=== PATIENT | female | born 2000 | race Caucasian/White ===

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

== ENCOUNTER 2020-05-30 20:05 | Emergency (ER) | payer BC ==
--- OUTSIDE RECORDS SUMMARY | 2020-05-30 20:07 | XMS REPORT | Continuity of Care Document ---
:2000 Author Organization [facility] t Address [address] [place] [address] Care Team Providers Name Role Phone Mariana BURGOS, Vimal Attending Clinician Doctor Unassigned, Name Attending Clinician Unavailable Problems This patient has no known problems. Allergies, Adverse Reactions, Alerts This patient has no known allergies or adverse reactions. Medications This patient has no known medications. Procedures This patient has no known procedures. Encounters Start End Encounter Admission Attending Care Care Encounter Source Date/Time Date/Time Type Type Clinicians Facility Department ID 2019-03-31 2019-03-[address] [facility] [id number] 00:00:00 00:00:00 [facility] [id number] [facility] [id number] [place] [id number] [place] [id number] [address] 2019-03-29 2019-03-[address] [facility] [id number] 10:55:16 11:10:16 Visit [facility] [id number] [facility] [id number] [place] [phone] [place] [facility] Office [address] 2019-03-29 2019-03-29 Orders Doctor GLORIA [id number] 00:00:00 00:00:00 Only UnassignedLISA [id number] [place] [facility] [id number] Results This patient has no known results.
[2020-05-30] MEDS ORDERED: ONDANSETRON 4 MG/2 ML VIAL ONE (20:56)
[2020-05-30] MEDS ORDERED: MECLIZINE HCL 12.5 MG TAB ONE (20:57)
[2020-05-30 21:04] LABS: Absolute Lymphocytes (CBC) 1.8 K/uL (0.7-4.9); Basophils % 0.7 % (0-1.3); Hematocrit 40.9 % (36.0-45.0); Lymphocytes % 30.9 % (15.3-44.8); MPV 8.4 fL (7.6-11.3); RBC Red Blood Cell Count 4.74 M/uL (3.86-4.86)
[2020-05-30 21:33] LABS: ALT/SGPT 17 U/L (12-78); AST/SGOT 7 U/L (15-37); Albumin 3.9 g/dL (3.4-5.0); Alkaline Phosphatase 94 U/L (45-117); BUN Blood Urea Nitrogen 5 mg/dL (7-18); Bicarbonate 28 mmol/L (21-32); Bilirubin Direct 0.1 mg/dL (0-0.2); Bilirubin Total 0.4 mg/dL (0.2-1.0); Glucose Level 86 mg/dL (74-106); Lipase 76 U/L (73-393); Potassium 3.7 mmol/L (3.5-5.1); Protein, Total 7.7 g/dL (6.4-8.2); Sodium Level 142 mmol/L (136-145); Troponin (Emerg Dept Use Only) < 0.02 ng/mL (0.0-0.045)
[2020-05-30 22:19] LABS: Urine Blood NEGATIVE (NEG); Urine Glucose NEGATIVE (NEG); Urine Protein NEGATIVE (NEG); Urine Specific Gravity 1.015 (1.005-1.030); Urine pH 6.5 (5.0-7.0)
[2020-05-30 22:42] LABS: Barbiturates NEGATIVE (NEGATIVE); Benzodiazepines POSITIVE (NEGATIVE); Cocaine NEGATIVE (NEGATIVE); METHAMPHETAM NEGATIVE (NEGATIVE); Methadone NEGATIVE (NEGATIVE); Opiates NEGATIVE (NEGATIVE); Phencyclidine NEGATIVE (NEGATIVE); THC Cannibis POSITIVE (NEGATIVE)
--- NOTE | 2020-05-30 23:00 | ER ---
Nurse's Notes [facility] Name: Hawa Montes [place] Age: 19 yrs Sex: Female : 2000 Arrival Date: 05/30/2020 Time: 20:10 Bed 18 Private MD: Diagnosis: Other peripheral vertigo, unspecified ear Presentation: 05/30 20:12 Chief complaint: EMS states: called for seizures, headache and tunnel vision x 2 days. ca1 No history of seizures. Reports self-medicating with Xanax. Coronavirus screen: Client denies travel out of the [place] in the last 14 days. headache, nausea, Client presents with at least one sign or symptom that may indicate coronavirus-19. Standard/surgical mask placed on the client. Provider contacted for isolation considerations. Ebola Screen: Patient negative for fever greater than or equal to 101.5 degrees Fahrenheit, and additional compatible Ebola Virus Disease symptoms Patient denies exposure to infectious person. Patient denies travel to an Ebola-affected area in the 21 days before illness onset. No symptoms or risks identified at this time. Initial Sepsis Screen: Does the patient meet any 2 criteria? No. Patient's initial sepsis screen is negative. Does the patient have a suspected source of infection? No. Patient's initial sepsis screen is negative. Risk Assessment: Do you want to hurt yourself or someone else? Patient reports no desire to harm self or others. Onset of symptoms was May 30, 2020. 20:12 Method Of Arrival: EMS: [facility] ca1 20:12 Acuity: LEAH 3 ca1 Triage Assessment: 20:20 General: Appears in no apparent distress. comfortable, Behavior is calm, cooperative, ca1 appropriate for age, drowsy. Pain: Complains of pain in left parietal area, right parietal area and occipital area Pain currently is 5 out of 10 on a pain scale. Pain began 2-3 days ago. Also complains of nausea. Neuro: Level of Consciousness is awake, alert, obeys commands, Oriented to person, place, time, situation. Cardiovascular: Capillary refill < 3 seconds Patient's skin is warm and dry. Respiratory: Airway is patent Respiratory effort is even, unlabored, Respiratory pattern is regular, symmetrical. GI: Abdomen is flat, non-distended, Bowel sounds present X 4 quads. Abd is soft and non tender X 4 quads. : No signs and/or symptoms were reported regarding the genitourinary system. Derm: Skin is intact, is healthy with good turgor, Skin is pink, warm \T\ dry. Musculoskeletal: Circulation, motion, and sensation intact. Capillary refill < 3 seconds. 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 - Social history:: Smoking status: Reported history of juuling and/or vaping. Patient uses street drugs, marijuana, Xanax. Screenin:22 Abuse screen: Denies threats or abuse. Denies injuries from another. Nutritional ca1 screening: No deficits noted. Tuberculosis screening: No symptoms or risk factors identified. Fall Risk None identified. Assessment: 20:22 Reassessment: see triage notes. ca1 21:00 Reassessment: Patient appears in no apparent distress at this time. Patient and/or ca1 family updated on plan of care and expected duration. Pain level reassessed. Patient is alert, oriented x 3, equal unlabored respirations, skin warm/dry/pink. 23:03 Reassessment: Patient appears in no apparent distress at this time. Patient and/or ca1 family updated on plan of care and expected duration. Pain level reassessed. Patient is alert, oriented x 3, equal unlabored respirations, skin warm/dry/pink. 23:03 Pain: Denies pain. ca1 Vital Signs: 20:12 BP 113 / 89; Pulse 78; Resp 16 S; Temp 98.1(O); Pulse Ox 100% on R/A; Weight 104.33 kg ca1 (R); Height 5 ft. 11 in. (180.34 cm) (R); Pain 1/; 21:00 BP 105 / 66; Pulse 64; Resp 16 S; Pulse Ox 100% on R/A; ca1 22:00 BP 103 / 58; Pulse 65; Resp 17 S; Pulse Ox 99% on R/A; ca1 23:00 BP 94 / 59; Pulse 63; Resp 15 S; Pulse Ox 99% on R/A; ca1 20:12 Body Mass Index 32.08 (104.33 kg, 180.34 cm) ca1 ED Course: 20:00 Patient has correct armband on for positive identification. Bed in low position. Call jp3 light in reach. Side rails up X 1. Side rails up X2. Warm blanket given. Verbal reassurance given. Pulse ox on. NIBP on. 20:10 Patient arrived in ED. cf2 20:16 Rob Manuel PA is PHCP. [facility] 20:16 Severiano Motta MD is Attending Physician. [facility] 20:17 Hafsa Little, PRADEEP is Primary Nurse. ca1 20:18 Patient maintains SpO2 saturation greater than 95% on room air. jp3 20:19 Triage completed. ca1 20:20 Arm band placed on right wrist. ca1 20:50 Initial lab(s) drawn, by me, sent to lab. Inserted saline lock: 20 gauge in left 3 antecubital area, using aseptic technique. Blood collected. 21:42 CT Head Brain wo Cont In Process Unspecified. EDMS 22:59 Marion Menjivar MD is Referral Physician. [facility] 23:09 No provider procedures requiring assistance completed. IV discontinued, intact, ca1 bleeding controlled, No redness/swelling at site. Pressure dressing applied. Administered Medications: 20:55 Drug: Zofran (Ondansetron) 4 mg Route: IVP; Site: left antecubital; ca1 21:30 Follow up: Response: No adverse reaction; Nausea is decreased ca1 20:57 Drug: Meclizine 50 mg Route: PO; ca1 21:30 Follow up: Response: No adverse reaction; Marked relief of symptoms ca1 Outcome: 23:00 Discharge ordered by . [facility] 23:09 Discharged to home ambulatory, with significant other. ca1 23:09 Condition: stable 23:09 Discharge instructions given to patient, significant other, Instructed on discharge instructions, follow up and referral plans. medication usage, Demonstrated understanding of instructions, follow-up care, medications, Prescriptions given X 1. 23:10 Patient left the ED. ca1 Signatures: Dispatcher [employer] EDMS Rob Manuel PA PA jmm Pisarski, Jacob jp3 Hafsa Little RN RN ca1 Дмитрий Carver cf2 Corrections: (The following items were deleted from the chart) 20:22 20:12 Coronavirus screen: Client denies travel out of the [place] in the last 14 days. At ca1 this time, the client does not indicate any symptoms associated with coronavirus-19. ca1
--- NOTE | 2020-05-30 23:01 | EDPHYS ---
Physician Documentation [facility] Name: Hawa Montes May Age: 19 yrs Sex: Female : 2000 Arrival Date: 05/30/2020 Time: 20:10 Bed 18 Private MD: ED Physician Severiano Motta HPI: 05/30 20:37 This 19 yrs old Female presents to ER via EMS with complaints of Headache, jmm dizziness. 20:37 The patient presents with dizziness. Onset: The symptoms/episode began/occurred jmm acutely, 2 day(s) ago. Modifying factors: the symptoms are aggravated by standing up, changing position. Associated signs and symptoms: Pertinent negatives: blurred vision, vomiting. This is a 19 year old female with no chronic medical conditions that presents to the ED with complaints of headache, dizziness beginning 2 days ago. Denies vomiting, denies fever. Patient also complains of blurred vision. No previous history of vertigo. . ZOO VETERINARIAN: 20:20 LMP 05/22/2020 ca1 Historical: - Allergies: 20:20 Amoxicillin; ca1 - Home Meds: 20:20 None [Active]; ca1 - PMHx: 20:20 None; ca1 - PSHx: 20:20 None; ca1 - Immunization history:: Adult Immunizations up to date. - Social history:: Smoking status: Reported history of juuling and/or vaping. Patient uses street drugs, marijuana, Xanax. ROS: 20:37 Constitutional: Negative for fever, chills, and weight loss, Cardiovascular: Negative jmm for chest pain, palpitations, and edema, Respiratory: Negative for shortness of breath, cough, wheezing, and pleuritic chest pain. 20:37 Abdomen/GI: 20:37 Neuro: Positive for dizziness, headache. 20:37 All other systems are negative. Exam: 20:37 Constitutional: This is a well developed, well nourished patient who is awake, alert, jmm and in no acute distress. Head/Face: atraumatic. ENT: Moist Mucus Membranes Neck: Trachea midline, Supple Chest/axilla: Normal chest wall appearance and motion. Cardiovascular: Regular rate and rhythm. No edema appreciated Respiratory: Normal respirations, no respiratory distress appreciated Abdomen/GI: Non distended, soft Back: Normal ROM Skin: General appearance color normal 20:37 Psych: Behavior is normal, Mood is normal, Patient is cooperative and pleasant 20:37 Eyes: Extraocular movements: intact throughout, Nystagmus: nystagmus with fast component noted. 22:57 ECG was reviewed by the Attending Physician. [facility] Vital Signs: 20:12 BP 113 / 89; Pulse 78; Resp 16 S; Temp 98.1(O); Pulse Ox 100% on R/A; Weight 104.33 kg ca1 (R); Height 5 ft. 11 in. (180.34 cm) (R); Pain 1/10; 21:00 BP 105 / 66; Pulse 64; Resp 16 S; Pulse Ox 100% on R/A; ca1 22:00 BP 103 / 58; Pulse 65; Resp 17 S; Pulse Ox 99% on R/A; ca1 23:00 BP 94 / 59; Pulse 63; Resp 15 S; Pulse Ox 99% on R/A; ca1 20:12 Body Mass Index 32.08 (104.33 kg, 180.34 cm) ca1 MDM: 20:31 Patient medically screened. [facility] 21:34 Data reviewed: vital signs, nurses notes. [facility] 22:57 Data reviewed: lab test result(s), EKG, radiologic studies, CT scan. [facility] 22:58 Counseling: I had a detailed discussion with the patient and/or guardian regarding: the [facility] historical points, exam findings, and any diagnostic results supporting the discharge/admit diagnosis, lab results, radiology results, the need for outpatient follow up, to return to the emergency department if symptoms worsen or persist or if there are any questions or concerns that arise at home. ED course: CT negative. Dizziness resolved. Most likely peripheral vertigo. Patient advised to follow up with ent for further evaluation. Patient is otherwise given strict return precautions. Patient understood and agrees with the plan of care. . 05/30 20:35 Order name: Basic Metabolic Panel; Complete Time: 21:34 [facility] 05/30 20:35 Order name: CBC with Diff; Complete Time: 21:20 [facility] 05/30 20:35 Order name: Hepatic Function; Complete Time: 21:34 [facility] 05/30 20:35 Order name: Lipase; Complete Time: 21:34 [facility] 05/30 20:36 Order name: Troponin (emerg Dept Use Only); Complete Time: 21:34 [facility] 05/30 21:57 Order name: Urine Drug Screen; Complete Time: 22:56 ca1 05/30 20:35 Order name: IV Saline Lock; Complete Time: 20:57 [facility] 05/30 20:36 Order name: Labs collected and sent; Complete Time: 20:57 [facility] 05/30 20:36 Order name: Urine Dipstick-Ancillary (obtain specimen); Complete Time: 22:19 [facility] 05/30 20:36 Order name: CT Head Brain wo Cont [facility] 05/30 22:15 Order name: Urine --Ancillary (enter results); Complete Time: 22:22 tt3 05/30 22:15 Order name: Urine Dipstick--Ancillary (enter results); Complete Time: 22:22 tt3 05/30 20:36 Order name: EKG - Nurse/Tech; Complete Time: 20:57 jmm EC:57 Rate is 62 beats/min. Rhythm is regular. QRS [place] is Normal. MD interval is normal. QRS jmm interval is normal. QT interval is normal. No Q waves. T waves are Normal. No ST changes noted. Reviewed by me. Administered Medications: 20:55 Drug: Zofran (Ondansetron) 4 mg Route: IVP; Site: left antecubital; ca1 21:30 Follow up: Response: No adverse reaction; Nausea is decreased ca1 20:57 Drug: Meclizine 50 mg Route: PO; ca1 21:30 Follow up: Response: No adverse reaction; Marked relief of symptoms ca1 Disposition: 05/30/20 23:00 Discharged to Home. Impression: Other peripheral vertigo, unspecified ear. - Condition is Stable. - Discharge Instructions: Benign Positional Vertigo, Dizziness, Vertigo, Mihaela Maneuver Self-Care. - Prescriptions for Meclizine 25 mg Oral Tablet - take 1 tablet by ORAL route every 8 hours As needed; 30 tablet. - Medication Reconciliation Form, Thank You Letter, Antibiotic Education, Prescription Opioid Use form. - Follow up: Marion Menjivar MD; When: 2 - 3 days; Reason: Recheck today's complaints, Continuance of care, Re-evaluation by your physician. Addendum: 06/01/2020 13:08 Co-signature as Attending Physician, Severiano Motta MD I agree with the assessment and c coulter plan of care. Signatures: Dispatcher [employer] EDMS Kalia, Severiano, MD MD keila Mickail, Rob, PA PA jmm Acob, Hafsa, RN RN ca1 Corrections: (The following items were deleted from the chart) 05/30 23:10 23:00 05/30/2020 23:00 Discharged to Home. Impression: Other peripheral vertigo, ca1 unspecified ear. Condition is Stable. Forms are Medication Reconciliation Form, Thank You Letter, Antibiotic Education, Prescription Opioid Use. Follow up: Marion Menjivar; When: 2 - 3 days; Reason: Recheck today's complaints, Continuance of care, Re-evaluation by your physician. javier
[2020-05-30 23:16] VITALS: TEMP 98.1
[2020-05-30 23:19] VITALS: O2SAT 99
[2020-05-30 23:20] VITALS: BP 94/59
--- NOTE | 2020-05-31 12:26 | RAD REPORT ---
EXAM DESCRIPTION: CT - Head Brain Wo Cont - 05/31/2020 7:02 am CLINICAL HISTORY: DIZZINESS COMPARISON: None Available. TECHNIQUE: Contiguous axial images of the brain were obtained without the administration of intraven ous contrast. This exam was performed according to our departmental dose-optimization program, which includes automated exposure control, adjustment of the mA and/or kV according to patient size and/or use of iterative reconstruction technique. FINDINGS: There is no acute intracranial hemorrhage or mass effect. Ventricular system is within nor mal limits. There is adequate cornelius-white matter differentiation. There is no skull fracture. The visu alized paranasal sinuses and mastoid air cells are within normal limits. IMPRESSION: No acute intracranial abnormalities. Electronically signed by: Rafael Nieves MD 05/30/2020 10:07 PM CDT Due to temporary technical issues with the PACS/Fluency reporting system, reports are being signed by the in house radiologist without review as a courtesy to ensure prompt reporting. The interpreting r adiologist is fully responsible for the content of the report.
== END 2020-05-30 23:10 | disposition home or self-care (01) ==
LOC: ER 20:05
DX: H81.399 Other peripheral vertigo, unspecified ear (principal); Z88.1 Allergy status to other antibiotic agents; Z87.891 Personal history of nicotine dependence
CPT/HCPCS: 93005; 85025; 80048; 36415; 81025; 80076; 80307 ×8; 81003; 84484; 83690; 70450; 96374; 99285; J2405

== ENCOUNTER 2022-02-04 13:51 | Emergency (ER) | payer BC ==
--- OUTSIDE RECORDS SUMMARY | 2022-02-04 13:53 | XMS REPORT | Continuity of Care Document ---
:2000 Author Organization [facility] t Address [address] [place] [address] [address] [place] [address] Care Team Providers Name Role Phone Vimal Peña MD Attending Clinician Doctor Unassigned, Name Attending Clinician Unavailable Payers Payer Name Policy Type Policy Number Effective Date Expiration Date S ource Problems Condition Condition Condition Status Onset Resolution Last Treating Co mments Source Name Details Category Date Date Treatment Clinician Date Major Major Disease Active Univers depression depression 2-24 [place] y of , [place] , [place] [facility] [place] Overweight Overweight Disease Active U nivers 1-16 ity of 00:00: [place] [id number] [facility] Branch On oral On oral Disease Active Univers contracept contracept 8-24 it y of rohan pills rohan pills 00:00: [place] [facility] for for 00 Medical non-contra non-contra Br anch ception ception indication indication HPV HPV Disease Active Univers vaccine vaccine 8-24 it[place] of counseling counseling 00:[place] [facility] Hyperlipid Hyperlipid Disease Active U nivers emia emia 8-24 ity of 00:00: [place] [id number] [facility] History of History of Disease Active U nivers recurrent recurrent 8-24 ity of UTIs UTIs 00:00: [place] 00 [facility] Allergies, Adverse Reactions, Alerts Allergy Allergy Status Severity Reaction(s) Onset Inactive Treating Comm ents Source Name Type Date Date Clinician Amoxicil Propensi Active Nausea Univer s dana-Pot ty to and/or 3-20 ity of Clavulan adverse Vomiting 00:00: [place] ate reaction Medical s Branch Social History Social Habit Start Date Stop Date Quantity Comments Source Alcohol intake [facility] Smoking Status Start Date Stop Date Source Never smoker [facility] Medications Ordered Filled Start Stop Current Ordering Indication Dosage Frequency Signature Comments Components Source Medication Medication Date Date Medication? Clinician (SIG) Name Name etonogestre Yes 68mg 68 mg by Un danilo l 68 mg 8-14 Sub[place] 16:09[place] [facility] etonogestre Yes 68mg 68 mg by Un danilo l 68 mg 8-14 Subdermal [place] 16:09[place]. [facility] meloxicam Yes [id number] 15mg Take 15 mg Univers 15 mg TbDL 8-14 by mouth ity o f 00:00: daily. [place] [facility] meloxicam Yes [id number] 15mg Take 15 mg Univers 15 mg TbDL 8-14 by mouth ity o f 00:00: daily. [place] [facility] etonogestre Yes 68mg 68 mg by Un danilo l 68 mg 3-20 Subdermal [place] 18:02[place]. [facility] Branch busPIRone 5 Yes [id number] 5mg Take 1 Univers mg tablet 3-20 tablet by ity o f 00:00: mouth 2 [place] 00 (two) Medical times Branch daily. busPIRone 5 2019- No [id number] 5mg Take 1 Univers mg tablet 3-20 08-14 tablet by ity of 00:00: 00:00 mouth 2 [place] 00 :00 (two) Medical times Branch daily. Immunizations Ordered Immunization Filled Immunization Date Status Commen ts Source Name Name Meningococcal 2018-03-16 Completed University of Polysaccharide 00:00:00 [place] [facility] (groups A, C, Y and Branc h W-135) conjugate vaccine (MCV4P) Meningococcal 2018-03-16 Completed University of Polysaccharide 00:00:00 [place] [facility] (groups A, C, Y and Branc h W-135) conjugate vaccine (MCV4P) Meningococcal 2018-03-16 Completed University of Polysaccharide 00:00:00 [place] [facility] (groups A, C, Y and Branc h W-135) conjugate vaccine (MCV4P) Vital Signs Vital Name Observation Time Observation Value Comments Source Systolic blood 2019-03-29 16:07:00 98 mm[Hg] Univer sity of pressure [place] [facility] Diastolic blood 2019-03-29 16:07:00 68 mm[Hg] Unive rsity of pressure [place] [facility] Heart rate 2019-03-29 16:07:00 68 /min [facility] [place] [facility] Body temperature 2019-03-29 16:07:00 35.94 Irma Univ ersity of [place] [facility] Respiratory rate 2019-03-29 16:07:00 16 /min Univ ersity of [place] [facility] Body height 2019-03-29 16:07:00 177.8 cm [facility] [place] [facility] Body weight 2019-03-29 16:07:00 104.327 kg [facility] [place] [facility] BMI 2019-03-29 16:07:00 33.00 kg/m2 [facility] [place] [facility] Systolic blood 2019-03-29 16:07:00 98 mm[Hg] Univer sity of pressure [place] [facility] Diastolic blood 2019-03-29 16:07:00 68 mm[Hg] Unive rsity of pressure [place] [facility] Heart rate 2019-03-29 16:07:00 68 /min [facility] [place] [facility] Body temperature 2019-03-29 16:07:00 35.94 [place] Univ [facility] [place] [facility] Respiratory rate 2019-03-29 16:07:00 16 /min Univ ers[facility] [place] [facility] Body height 2019-03-29 16:07:00 177.8 cm [facility] [place] [facility] Body weight 2019-03-29 16:07:00 104.327 kg [facility] [place] [facility] BMI 2019-03-29 16:07:00 33.00 kg/m2 [facility] [place] [facility] Procedures Procedure Date / Time Performing Clinician Source Performed NO SHOW OR MISSED 2019-03-29 15:53:52 Doctor Unassigned, [facility] APPOINTMENT POLICY [facility] [place] h ACKNOWLEDGEMENT Encounters Start End Encounter Admission Attending Care Care Encounter Source Date/Time Date/Time Type Type Clinicians Facility Department ID 2019-03-31 2019-03-31 Telephone [place] [facility] [[email or web address] [id number] 00:00:00 00:00:00 [facility] [id number] [place] [id number] Professio [phone] [place] [address] [address] 2019-03-31 2019-03-31 [facility] [id number] [facility] [place] 00:00:00 00:00:00 [facility] [id number] it y of [place] [id number] Vel as Professio [phone] [address] Office [facility] 2019-03-29 2019-03-29 Office [facility] [id number] [facility] [place] 10:55:16 11:10:16 Visit [facility] [id number] it y of [place] [id number] Vel as Professio [phone] [address] Office [facility] 2019-03-29 2019-03-29 [facility] [id number] 10:55:16 11:10:16 Visit [facility] [id number] [place] [id number] Professio [phone] [address] 2019-03-29 2019-03-29 Orders Doctor GLORIA [id number] Univers 00:00:00 00:00:00 Only Unassigned, LISA [id number] ity of [facility] [id number] Vel as [phone] [address] 2019-03-29 2019-03-29 Orders Doctor GLORIA [id number] 00:00:00 00:00:00 Only Unassigned, LISA [id number] [facility] [id number] Results This patient has no known results.
--- NOTE | 2022-02-04 15:33 | RAD REPORT ---
EXAM DESCRIPTION: CT - Head Brain Wo Cont - 02/04/2022 3:21 pm CLINICAL HISTORY: Headache COMPARISON: Head Brain Wo Cont dated 05/30/2020 TECHNIQUE: All CT scans are performed using dose optimization technique as appropriate and may inclu de automated exposure control or mA/KV adjustment according to patient size. FINDINGS: No intracranial hemorrhage, hydrocephalus or extra-axial fluid collection.No areas of brai n edema or evidence of midline shift. Low lying cerebellar tonsils. The paranasal sinuses and mastoids are clear. The calvarium is intact. IMPRESSION: No acute intracranial abnormality.
[2022-02-04 15:51] LABS: Absolute Lymphocytes (CBC) 1.6 K/uL (0.7-4.9); Hematocrit 41.6 % (36.0-45.0); Lymphocytes % 29.1 % (15.3-44.8); MPV 7.9 fL (7.6-11.3)
--- NOTE | 2022-02-04 15:59 | RAD REPORT ---
EXAM DESCRIPTION: RAD - Chest Single View - 02/04/2022 3:32 pm CLINICAL HISTORY: near syncope COMPARISON: No comparisons FINDINGS: Lines: None. Lungs: No evidence of edema or pneumonia. Pleural: No significant pleural effusions or pneumothorax. Cardiac: The heart size is within normal limits. Bones: No acute fractures. Other: IMPRESSION: No acute cardiopulmonary disease.
[2022-02-04 16:14] LABS: ALT/SGPT 15 U/L (12-78); AST/SGOT 9 U/L (15-37); Albumin 3.9 g/dL (3.4-5.0); Alkaline Phosphatase 86 U/L (45-117); BUN Blood Urea Nitrogen 7 mg/dL (7-18); Bicarbonate 29 mmol/L (21-32); Bilirubin Total 0.3 mg/dL (0.2-1.0); Glomerular Filtration Rate 119 ml/min (=/>90); Glucose Level 88 mg/dL (74-106); Magnesium 2.5 mg/dL (1.8-2.4); Protein, Total 7.6 g/dL (6.4-8.2); Sodium Level 140 mmol/L (136-145); Troponin High Sensitivity 19.6 pg/mL (<58.9)
[2022-02-04 16:26] LABS: Bilirubin Direct < 0.1 mg/dL (0-0.2)
[2022-02-04 17:15] LABS: Urine Blood Trace-intact (Negative); Urine Glucose Negative (Negative); Urine Protein Negative (Negative)
[2022-02-04] MEDS ORDERED: NA CHLORIDE 0.9% 1,000 ML ONE (17:20)
--- NOTE | 2022-02-04 18:27 | EDPHYS ---
Physician Documentation [facility] Name: Hawa Montes Brandon Age: 21 yrs Sex: Female : 2000 Arrival Date: 02/04/2022 Time: 13:54 Bed 6 Private MD: Kevin Patel ED Physician Jose C Coburn HPI: 02/04 14:52 This 21 yrs old Female presents to ER via Ambulatory with complaints of Headache. pm1 14:52 The patient complains of pain to the forehead. The patient describes the headache as pm1 aching. Onset: The symptoms/episode began/occurred On and off for the past 1 year with episodes of near syncope. Associated signs and symptoms: Pertinent negatives: Chest pain, shortness of breath, fever. Severity of symptoms: in the emergency department the pain has improved. Headache History: The patient has had previous headaches and this one is similar to previous episodes. the symptoms are aggravated by Changing position, lying or sitting to standing position. The patient has experienced similar episodes in the past, multiple times. The patient has not recently seen a physician. 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 - Social history:: Smoking status: Reported history of juuling and/or vaping. ROS: 14:52 Constitutional: Negative for fever, chills, and weight loss, Cardiovascular: Negative pm1 for chest pain, palpitations, and edema, Respiratory: Negative for shortness of breath, cough, wheezing, and pleuritic chest pain, Abdomen/GI: Negative for abdominal pain, nausea, vomiting, diarrhea, and constipation, MS/Extremity: Negative for injury and deformity, Skin: Negative for injury, rash, and discoloration. 14:52 Neuro: Positive for headache. 14:52 All other systems are negative. Exam: 14:52 Constitutional: This is a well developed, well nourished patient who is awake, alert, pm1 and in no acute distress. Head/Face: Normocephalic, atraumatic. 14:52 Back: No spinal tenderness. No costovertebral tenderness. Full range of motion. Skin: Warm, dry with normal turgor. Normal color with no rashes, no lesions, and no evidence of cellulitis. MS/ Extremity: Pulses equal, no cyanosis. Neurovascular intact. Full, normal range of motion. 14:52 Eyes: Exam is negative for acute changes, Periorbital structures: no acute changes. 14:52 ENT: Exam is negative for acute changes, Mouth: no acute changes, Lips: normal, moist, Oral mucosa: normal, pink and intact, moist. 14:52 Cardiovascular: Exam negative for acute changes, Rate: normal, Rhythm: regular, Pulses: no pulse deficits are appreciated, Heart sounds: normal. 14:52 Respiratory: Exam negative for acute changes, respiratory distress, shortness of breath, Breath sounds: are clear throughout. 14:52 Abdomen/GI: Exam negative for acute changes, Inspection: abdomen appears normal, Palpation: abdomen is soft and non-tender, in all quadrants. 14:52 Neuro: Exam negative for acute changes, Orientation: is normal, Mentation: is normal, Cranial nerves: CN II- XII are normal as tested, Cerebellar function: Romberg testing is negative, normal finger to nose testing, Motor: is normal, no acute changes, moves all fours, Sensation: no obvious gross deficits, Gait: is steady, at a normal pace, without difficulty. Vital Signs: 14:27 BP 134 / 99; Pulse 69; Resp 14; Temp 97.6(TE); Pulse Ox 100% on R/A; Weight 99.79 kg; ss Height 5 ft. 11 in. (180.34 cm); Pain 6/10; 16:28 BP 119 / 71; Pulse 63; Resp 16; Pulse Ox 100% ; vg1 17:17 BP 113 / 76 Supine; Pulse 60; vg1 17:19 BP 117 / 70 Sitting; Pulse 62; vg1 17:21 BP 131 / 81 Standing; Pulse 76; vg1 14:27 Body Mass Index 30.68 (99.79 kg, 180.34 cm) ss MDM: 15:15 Patient medically screened. pm1 18:10 Data reviewed: vital signs. Data interpreted: Pulse oximetry: on room air is 100 %. pm1 Interpretation: normal. Counseling: I had a detailed discussion with the patient and/or guardian regarding: the historical points, exam findings, and any diagnostic results supporting the discharge/admit diagnosis, lab results, radiology results, the need for outpatient follow up, to return to the emergency department if symptoms worsen or persist or if there are any questions or concerns that arise at home. 02/04 14:52 Order name: Basic Metabolic Panel; Complete Time: 16:56 pm1 02/04 14:52 Order name: CBC with Diff; Complete Time: 16:13 pm1 02/04 14:52 Order name: LFT's; Complete Time: 16:56 pm1 02/04 14:52 Order name: Magnesium; Complete Time: 16:56 pm1 02/04 14:52 Order name: Troponin HS; Complete Time: 16:56 pm1 02/04 14:52 Order name: XRAY Chest (1 view); Complete Time: 16:13 pm1 02/04 14:52 Order name: EKG; Complete Time: 14:53 pm1 02/04 14:53 Order name: CT Head Brain wo Cont; Complete Time: 15:43 pm1 02/04 15:35 Order name: Thyroid Stimulating Hormone; Complete Time: 16:56 EDMS 02/04 17:15 Order name: Urine Dipstick-Ancillary; Complete Time: 17:20 EDMS 02/04 17:17 Order name: Urine --Ancillary (enter results); Complete Time: 18:08 bd 02/04 14:52 Order name: Cardiac monitoring; Complete Time: 16:08 pm1 02/04 14:52 Order name: EKG - Nurse/Tech; Complete Time: 15:56 pm1 02/04 14:52 Order name: IV Saline Lock; Complete Time: 15:43 pm02/04 14:52 Order name: Labs collected and sent; Complete Time: 15:43 pm02/04 14:52 Order name: O2 Per Protocol; Complete Time: 16:08 pm1 02/04 14:52 Order name: O2 Sat Monitoring; Complete Time: 16:08 pm1 02/04 14:53 Order name: Urine Test (obtain specimen); Complete Time: 17:16 pm1 02/04 14:53 Order name: Urine Dipstick-Ancillary (obtain specimen); Complete Time: 17:16 pm02/04 17:02 Order name: Orthostatic Blood Pressure; Complete Time: 17:31 pm1 Administered Medications: 17:16 Drug: NS 0.9% 1000 ml Route: IV; Rate: 1000 ml; Site: left antecubital; vg1 18:48 Follow up: IV Status: Completed infusion; IV Intake: 1000ml vg1 18:24 Drug: Ketorolac 30 mg Route: IVP; Site: left antecubital; vg1 18:48 Follow up: Response: No adverse reaction; Marked relief of symptoms vg1 Disposition: 19:00 Co-signature as Attending Physician, Jose C Coburn MD. rn Disposition Summary: 02/04/22 18:27 Discharge Ordered Location: Home pm1 Problem: new pm1 Symptoms: have improved pm1 Condition: Stable pm1 Diagnosis - Headache pm1 - Dehydration pm1 Followup: pm1 - With: Emergency Department - When: As needed - Reason: Worsening of condition Followup: pm1 - With: Private Physician - When: 2 - 3 days - Reason: Recheck today's complaints, Continuance of care, Re-evaluation by your physician Discharge Instructions: - Discharge Summary Sheet pm1 - Dehydration, Adult pm1 - General Headache Without Cause pm1 - Rehydration, Adult pm1 - Orthostatic Hypotension pm1 Forms: - Medication Reconciliation Form pm1 - Thank You Letter pm1 - Antibiotic Education pm1 - Prescription Opioid Use pm1 Signatures: Dispatcher [employer] EDJose C Benson MD MD rn Smirch, Shelby, RN RN Bear Aguilar, JOSE ARMANDO INVESTMENT BANKING MANAGER pm1 Matilde Gross RN RN vg1 Corrections: (The following items were deleted from the chart) 14:29 14:29 Allergies: Amoxicillin; ss ss 14:30 14:29 PMHx: None; ss ss 15:35 15:16 THYROID STIMULAT HORMONE+[id number].LAB.BRZ ordered. EDDE EDMS
--- NOTE | 2022-02-04 18:27 | ER ---
Nurse's Notes [facility] Name: Hawa Montes Padilla Age: 21 yrs Sex: Female : 2000 Arrival Date: 02/04/2022 Time: 13:54 Bed 6 Private MD: Kevin Patel Diagnosis: Headache;Dehydration Presentation: 02/04 14:27 Chief complaint: Patient states: Intermittent headaches with episodes of near syncope ss for 1 year. PT reports that this has been occurring more frequent recently. Coronavirus screen: Client denies travel out of the [place] in the last 14 days. Ebola Screen: Patient denies exposure to infectious person. Patient denies travel to an Ebola-affected area in the 21 days before illness onset. Initial Sepsis Screen: Does the patient meet any 2 criteria? No. Patient's initial sepsis screen is negative. Does the patient have a suspected source of infection? No. Patient's initial sepsis screen is negative. Risk Assessment: Do you want to hurt yourself or someone else? Patient reports no desire to harm self or others. Onset of symptoms was 2020. 14:27 Method Of Arrival: Ambulatory ss 14:27 Acuity: LEAH 3 ss Triage Assessment: 15:20 Headache History: The patient has had previous headaches and this one is more severe vg1 than previous episodes. 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 - Social history:: Smoking status: Reported history of juuling and/or vaping. Screenin:20 Abuse screen: Denies threats or abuse. Nutritional screening: No deficits noted. vg1 Tuberculosis screening: No symptoms or risk factors identified. Fall Risk No fall in past 12 months (0 pts). No secondary diagnosis (0 pts). IV access (20 points). Ambulatory Aid- None/Bed Rest/Nurse Assist (0 pts). Gait- Normal/Bed Rest/Wheelchair (0 pts) Mental Status- Oriented to own ability (0 pts). Total Avery Fall Scale indicates No Risk (0-24 pts). Assessment: 15:20 General: Appears in no apparent distress. uncomfortable, Behavior is calm, cooperative. vg1 Pain: Complains of pain in head Pain currently is 8 out of 10 on a pain scale. Pain began on and off x 1 year Also complains of nausea. Neuro: Level of Consciousness is awake, alert, obeys commands, Oriented to person, place, time, situation, Reports blurred vision dizziness, headache a syncopal episode. Cardiovascular: Patient's skin is warm and dry. Respiratory: Airway is patent Respiratory effort is even, unlabored. GI: Reports nausea. : No signs and/or symptoms were reported regarding the genitourinary system. EENT: No signs and/or symptoms were reported regarding the EENT system. Derm: Skin is intact, is healthy with good turgor. Musculoskeletal: Circulation, motion, and sensation intact. 17:31 Reassessment: Patient appears in no apparent distress at this time. No changes from vg1 previously documented assessment. Patient and/or family updated on plan of care and expected duration. Pain level reassessed. Patient is alert, oriented x 3, equal unlabored respirations, skin warm/dry/pink. upon standing during orthostatics pt stated headache, pounding and feeling heavy. Provider notified. Vital Signs: 14:27 BP 134 / 99; Pulse 69; Resp 14; Temp 97.6(TE); Pulse Ox 100% on R/A; Weight 99.79 kg; ss Height 5 ft. 11 in. (180.34 cm); Pain 6/10; 16:28 BP 119 / 71; Pulse 63; Resp 16; Pulse Ox 100% ; vg1 17:17 BP 113 / 76 Supine; Pulse 60; vg1 17:19 BP 117 / 70 Sitting; Pulse 62; vg1 17:21 BP 131 / 81 Standing; Pulse 76; vg1 14:27 Body Mass Index 30.68 (99.79 kg, 180.34 cm) ED Course: 13:54 Patient arrived in ED. mr 13:54 Kevin Patel MD is Private Physician. mr 14:28 Triage completed. ss 14:29 Arm band placed on right wrist. ss 14:36 Bear Grullon NP is PHCP. pm1 14:36 Jose C Coburn MD is Attending Physician. pm1 15:17 Matilde Gross, RN is Primary Nurse. vg1 15:20 Patient has correct armband on for positive identification. Bed in low position. Call vg1 light in reach. Side rails up X2. Adult w/ patient. 15:20 No provider procedures requiring assistance completed. vg1 15:22 CT Head Brain wo Cont In Process Unspecified. EDMS 15:34 XRAY Chest (1 view) In Process Unspecified. EDMS 15:42 Initial lab(s) drawn, by me, sent to lab. Inserted saline lock: 22 gauge in left jw7 antecubital area, using aseptic technique. Blood collected. 15:43 Basic Metabolic Panel Sent. jw7 15:43 CBC with Diff Sent. jw7 15:43 LFT's Sent. jw7 15:43 Magnesium Sent. jw7 15:43 Troponin HS Sent. jw7 15:45 Thyroid Stimulating Hormone Sent. jw7 15:56 Warm blanket given. jw7 15:56 EKG done, by ED staff, reviewed by Bear Grullon NETWORK AND THREAT SUPPORT SPECIALIST. jw7 18:48 IV discontinued, intact, bleeding controlled, No redness/swelling at site. Pressure vg1 dressing applied. Administered Medications: 17:16 Drug: NS 0.9% 1000 ml Route: IV; Rate: 1000 ml; Site: left antecubital; vg1 18:48 Follow up: IV Status: Completed infusion; IV Intake: 1000ml vg1 18:24 Drug: Ketorolac 30 mg Route: IVP; Site: left antecubital; vg1 18:48 Follow up: Response: No adverse reaction; Marked relief of symptoms vg1 Medication: 15:20 VIS not applicable for this client. vg1 Intake: 18:48 IV: 1000ml; Total: 1000ml. vg1 Outcome: 18:27 Discharge ordered by . pm1 18:48 Discharged to home ambulatory, with family. vg1 18:48 Condition: good 18:48 Discharge instructions given to patient, Instructed on discharge instructions, follow up and referral plans. Demonstrated understanding of instructions, follow-up care. 18:48 Patient left the ED. vg1 Signatures: Dispatcher [employer] [facility] La TeranKiersten RN RN ss Marinas, Patrick, NP NETWORK AND THREAT SUPPORT SPECIALIST pm1 Matilde Gross RN RN 1 Magi Tsai jw7 Corrections: (The following items were deleted from the chart) 14:29 14:29 Allergies: Amoxicillin; ss PMHx: None; ss
[2022-02-04] MEDS ORDERED: KETOROLAC 30 MG/ML INJ ONE (18:28)
[2022-02-04 19:02] VITALS: TEMP 97.6; O2SAT 100
[2022-02-04 19:08] VITALS: BP 131/81
--- NOTE | 2022-02-07 17:37 | EKG ---
Test Date: 2022-02-04 Test Time: 15:49:55 Forest Ranger: GINNY MEASUREMENT RESULTS: Intervals: Rate: 54 IA: 140 QRSD: 92 QT: 432 QTc: 409 Sunset: P: 36 IA: 140 QRS: 76 T: 57 INTERPRETIVE STATEMENTS: Sinus bradycardia Otherwise normal ECG Compared to ECG 05/30/2020 20:54:04 Sinus rhythm no longer present Electronically Signed On 02-07-22 17:31:48 CDT by Rylan Hicks
== END 2022-02-04 18:48 | disposition home or self-care (01) ==
LOC: ER 13:51
DX: E86.0 Dehydration (principal)
CPT/HCPCS: 96361; 93005; 85025; 80048; 36415; 83735; 81025; 80076; 84443; 81003; 84484; 70450; 71045; 96374; 99284; J7030

== ENCOUNTER 2025-01-02 07:32 | Emergency (ER) | payer BC ==
--- OUTSIDE RECORDS SUMMARY | 2025-01-02 07:38 | XMS REPORT | Continuity of Care Document ---
Author Name Unknown Address [address] [facility] [place] [address] Organization [facility] Address [address] [facility] [address] [place] [address] Care Team Providers Care Monogram Technician Name Role Phone PCP, PATIENT DOES NOT HAVE A Primary Care Physic charlee Unavailable DANITA BURROUGHS Attending Clinician Unavailable Danita Burroughs MD Attending Clinician ANGELI CHINO Attending Clinician Unav ailANGELI Coughlin Attending Clinician Unav ailable GC_GCBZW_Kadiyala_S Attending Clinician Hector Hughes MD Attending Clinician [phone] Doctor Unassigned, [place] Attending Clinician U navailable GC_GCBZW_Kadiyala_S Admitting Clinician Kathy gonzales Payers Payer Name Policy Type Policy Number Effective Date Expirati on Date Source BCBS [facility] - OUT OF STATE [id number] 2014 00:00:00 [id number] 2014 00:00:00 [place] [id number] Problems Condition Name Condition Details Condition Category Status Onset Date Resolution Date Last Treatment Date Treating Clinician Comments Source 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 Problem Active 2025-0 1-30 00:00: 00 [facility] Hypothyroi dism Hypothyroi dism Problem Active 9-18 00:00: 00 [facility] Syncope and collapse Syncope and collapse Disease Active 04-11 00:00: 00 [facility] Palpitatio ns Palpitatio ns Disease Active 04-11 00:00: 00 [facility] Thyroid function tests abnormal Thyroid Function Tests Abnormal Problem Active 03-09 00:00: 00 [facility] Excessive menstruati on with irregular cycle Excessive Menstruati on with Irregular Cycle Problem Active 03-09 00:00: 00 [facility] Excessive and frequent menstruati on Excessive and Frequent Menstruati on Problem Active 02-13 00:00: 00 [facility] Mass of lower limb Mass of Lower Limb Problem Active 02-13 00:00: 00 [facility] Human papillomav irus deoxyribon ucleic acid detected, high risk on cervical specimen Human Papillomav irus Deoxyribon ucleic Acid Detected, High Risk on Cervical Specimen Problem Active 02-13 00:00: 00 [facility] Low grade squamous intraepith elial lesion on cervical Papanicola ou smear Low Grade Squamous Intraepith elial Lesion on Cervical Papanicola ou Smear Problem Active 02-13 00:00: 00 [facility] Acute urinary tract infection Acute Urinary Tract Infection Problem Active 2022-08 2-06 00:00: 00 [facility] Acute pelvic pain Acute Pelvic Pain Problem Active 2022-08 00:00: 00 [facility] Attention deficit hyperactiv ity disorder Attention Deficit Hyperactiv ity Disorder Problem Active 2022-08 00:00: 00 [facility] Acute vaginitis Acute Vaginitis Problem Active 2022-08 00:00: 00 [facility] Dysuria Dysuria Problem Active 2022-08 00:00: 00 [facility] Major depression , chronic Major depression , chronic Disease Active 2-24 00:00: 00 [facility] Overweight Overweight Disease Active 1-16 00:00: 00 [facility] On oral contracept rohan pills for non-contra ception indication On oral contracept rohan pills for non-contra ception indication Disease Active 04-08 00:00: 00 [facility] HPV vaccine counseling HPV vaccine counseling Disease Active 04-08 00:00: 00 [facility] Hyperlipid emia Hyperlipid emia Disease Active 04-08 00:00: 00 [facility] History of recurrent UTIs History of recurrent UTIs Disease Active 04-08 00:00: 00 [facility] PMDD (premenstr ual dysphoric disorder) PMDD (premenstr ual dysphoric disorder) Disease Resolve d 09-17 00:00: 00 2017-10-09 00:00:00 2017-10-09 13:33:16 [facility] Allergies, Adverse Reactions, Alerts Allergy Name Allergy Type Status Severity Reaction(s) Onset Date Inactive Date Treating Clinician Comments Source Amoxicil dana-Pot Clavulan ate Propensi ty to adverse reaction s Active Nausea and/or Vomiting 11-02 00:00: 00 [facility] AMOXICIL DANA-POT CLAVULAN ATE DRUG Active N/V 11-02 00:00: 00 [facility] Augmenti n Allergy to substanc e Active Mild Vomiting [facility] Social History Social Habit Start Date Stop Date Quantity Comments Source Alcohol intake [facility] intake 2024-04-11 00:00:00 2024-04-11 00:00:00 0 /d [facility] History of Social function 2024-04-11 00:00:00 2024-04-11 00:00:00 [facility] Sex assigned at 2000 00:00:00 2000 00:00:00 [facility] Smoking Status Start Date Stop Date Source Never Smoker [facility] Medications Ordered Medication Name Filled Medication Name Start Date Stop Date Current Medication? Ordering Clinician Indication Dosage Frequency Signature (SIG) Comments Components Source drospirenon e-ethinyl estradioL 3-0.02 mg per tablet 04-11 09:41: 21 Yes 1{tbl} Take 1 tablet by mouth in the morning. [facility] escitalopra m oxalate 10 mg tablet 04-11 09:41: 21 Yes 15mg Take 1.5 tablets by mouth in the morning. [facility] etonogestre l 68 mg implant 03-29 16:09: 33 Yes 68mg 68 mg by Subdermal route once now. [facility] etonogestre l 68 mg implant 03-29 11:09: 33 Yes 68mg 68 mg by Subdermal route once now. [facility] meloxicam 15 mg TbDL 03-29 00:00: 00 Yes [id number] 15mg Take 15 mg by mouth daily. [facility] etonogestre l 68 mg implant 11-02 18:02: 26 Yes 68mg 68 mg by Subdermal route once now. [facility] busPIRone 5 mg tablet 11-02 00:00: 00 Yes [id number] 5mg Take 1 tablet by mouth 2 (two) times daily. [facility] Immunizations Ordered Immunization Name Filled Immunization Name Date Status Comments Source Meningococcal Polysaccharide (groups A, C, Y and W-135) conjugate vaccine (MCV4P) 2018-03-16 00:00:00 Completed [facility] Meningococcal Polysaccharide (groups A, C, Y and W-135) conjugate vaccine (MCV4P) 2018-03-16 00:00:00 Completed [facility] Meningococcal Polysaccharide (groups A, C, Y and W-135) conjugate vaccine (MCV4P) 2018-03-16 00:00:00 Completed [facility] Meningococcal Polysaccharide (groups A, C, Y and W-135) conjugate vaccine (MCV4P) Unknown Completed [facility] Meningococcal Polysaccharide (groups A, C, Y and W-135) conjugate vaccine (MCV4P) Unknown Completed [facility] HPV9 HPV9 Unknown Completed [facility] ical Vital Signs Vital Name Observation Time Observation Value Comments S ource BP Diastolic 2024-11-28 00:00:00 64 mm[Hg] [facility] Body Weight 2024-11-28 00:00:00 250.2 [lb_av] [facility] Height 2024-11-28 00:00:00 72 [in_i] [facility] BP Systolic 2024-11-28 00:00:00 132 mm[Hg] [facility] BMI (Body Mass Index) 2024-11-28 00:00:00 33.9 kg/m2 [facility] BMI (Body Mass Index) 2024-09-14 00:00:00 32.7 kg/m2 [facility] Body Weight 2024-09-14 00:00:00 240.8 [lb_av] [facility] BP Systolic 2024-09-14 00:00:00 118 mm[Hg] [facility] Height 2024-09-14 00:00:00 72 [in_i] [facility] BP Diastolic 2024-09-14 00:00:00 76 mm[Hg] [facility] BP Systolic 2024-04-13 00:00:00 123 mm[Hg] [facility] Body Weight 2024-04-13 00:00:00 223.2 [lb_av] [facility] BMI (Body Mass Index) 2024-04-13 00:00:00 30.3 kg/m2 [facility] Height 2024-04-13 00:00:00 72 [in_i] [facility] BP Diastolic 2024-04-13 00:00:00 73 mm[Hg] [facility] Systolic blood pressure 2024-04-11 14:51:00 125 mm[Hg] [facility] Diastolic blood pressure 2024-04-11 14:51:00 86 mm[Hg] [facility] Heart rate 2024-04-11 14:51:00 95 /min [facility] Respiratory rate 2024-04-11 14:51:00 16 /min [facility] Body height 2024-04-11 14:51:00 182.9 cm [facility] Body weight 2024-04-11 14:51:00 100.562 kg [facility] BMI 2024-04-11 14:51:00 30.07 kg/m2 [facility] Oxygen saturation in Arterial blood by Pulse oximetry 2024-04-11 14:51:00 97 /min [facility] BMI 2024-03-11 02:48:00 28.88 kg/m2 [facility] Oxygen saturation in Arterial blood by Pulse oximetry 2024-03-11 02:48:00 100 /min [facility] Systolic blood pressure 2024-03-11 02:48:00 145 mm[Hg] [facility] Diastolic blood pressure 2024-03-11 02:48:00 97 mm[Hg] [facility] Heart rate 2024-03-11 02:48:00 74 /min [facility] Body temperature 2024-03-11 02:48:00 36.61 Irma [facility] Respiratory rate 2024-03-11 02:48:00 18 /min [facility] Body height 2024-03-11 02:48:00 181.6 cm [facility] Body weight 2024-03-11 02:48:00 95.255 kg [facility] BMI (Body Mass Index) 2024-02-14 00:00:00 30.3 kg/m2 [facility] BP Diastolic 2024-02-14 00:00:00 68 mm[Hg] [facility] Body Weight 2024-02-14 00:00:00 223.2 [lb_av] [facility] Height 2024-02-14 00:00:00 72 [in_i] [facility] BP Systolic 2024-02-14 00:00:00 110 mm[Hg] [facility] Systolic blood pressure 2019-03-29 16:07:00 98 mm[Hg] [facility] Diastolic blood pressure 2019-03-29 16:07:00 68 mm[Hg] [facility] Heart rate 2019-03-29 16:07:00 68 /min [facility] Body temperature 2019-03-29 16:07:00 35.94 Irma [facility] Respiratory rate 2019-03-29 16:07:00 16 /min [facility] Body height 2019-03-29 16:07:00 177.8 cm [facility] Body weight 2019-03-29 16:07:00 104.327 kg [facility] BMI 2019-03-29 16:07:00 33.00 kg/m2 [facility] Systolic blood pressure 2019-03-29 16:07:00 98 mm[Hg] [facility] Diastolic blood pressure 2019-03-29 16:07:00 68 mm[Hg] [facility] Heart rate 2019-03-29 16:07:00 68 /min [facility] Body temperature 2019-03-29 16:07:00 35.94 Irma [facility] Respiratory rate 2019-03-29 16:07:00 16 /min [facility] Body height 2019-03-29 16:07:00 177.8 cm [facility] Body weight 2019-03-29 16:07:00 104.327 kg [facility] BMI 2019-03-29 16:07:00 33.00 kg/m2 [facility] Procedures Procedure Date / Time Performed Performing Clinician Source Transvaginal Us Non-ob 2024-03-24 00:00:00 [facility] MRI, pelvis, w/wo contrast 2024-02-14 00:00:00 [facility] NO SHOW OR MISSED APPOINTMENT POLICY ACKNOWLEDGEMENT 2019-03-29 15:53:52 Doctor Unassigned, [place] [facility] Extraction of [place] [facility] Encounters Start Date/Time End Date/Time Encounter Type Admission Type Attending Clinicians Care Facility Care Department Encounter ID Source 2024-11-28 00:00:00 2024-11-28 00:00:00 AGUSTINA Han: [address], [place] [address] , Ph. [facility] GC_GCBZW_[place] gordo Chris* [id number] [facility] 2024-09-26 00:00:00 2024-09-26 00:00:00 AGUSTINA Han: [address], [place] [address] , Ph. [facility] GC_GCBZW_Chloe Perez* [id number] [facility] 2024-09-14 00:00:00 2024-09-14 00:00:00 MIGDALIA Bingham: [address], [place] [phone] , Ph. [facility] - GC_GCBZW_[place] Chris* [id number] [facility] 2024-05-03 00:00:00 2024-05-03 00:00:00 MIGDALIA Diez: [address], [place] [phone] , Ph. [facility] - GC_GCBZW_Chloe caro Swink* [id number] [facility] 2024-04-27 15:30:00 2024-04-27 15:30:00 Outpatient R HEIKEASYACAPE [facility] [id number] [facility] 2024-04-19 10:00:00 2024-04-19 10:00:00 Outpatient R HEIKEASYACAPE [facility] [id number] [facility] 2024-04-13 00:00:00 2024-04-13 00:00:00 MIGDALIA Bingham: [address], [place] [phone] , Ph. [facility] - GC_GCBZW_Chloe caro Chris* [id number] [facility] 2024-04-11 10:00:00 2024-04-11 10:43:42 Outpatient R HEIKE ASYACAPE [facility] [id number] [facility] 2024-04-11 10:00:00 2024-04-11 10:43:42 Office Visit [facility] [id number] [facility] 2024-03-24 00:00:00 2024-03-24 00:00:00 Heena Gibbons MD: [address], [place] [phone] , Ph. [facility] - GC_GCBZW_Chloe Perez* [id number] [facility] 2024-03-10 21:51:00 2024-03-10 23:07:00 Emergency X ANGELI CHINO ERIN [facility] ERT [id number] [facility] 2024-03-10 21:51:00 2024-03-10 23:07:00 Emergency AprilerAngeli aldridge [facility] [id number] [facility] 2024-03-09 00:00:00 2024-03-09 00:00:00 MIGDALIA uJarez: [address], [place] [id number] , Ph. [facility] - GC_GCBZW_Chloe Perez* [id number] [facility] 2024-02-14 00:00:00 2024-02-14 00:00:00 MIGDALIA Juarez: [address], [place] [id number] , Ph. [facility] - GC_GCBZW_Chloe Perez* [id number] [facility] 2023-08-05 00:00:00 2023-08-05 00:00:00 Outpatient GC_GCBZW_Ka diyala_S [facility] [id number] [facility] 2023-08-01 00:00:00 2023-08-01 00:00:00 Outpatient GC_GCBZW_Ka diyala_S [facility] [id number] [facility] 2023-07-21 00:00:00 2023-07-21 00:00:00 Outpatient GC_GCBZW_Ka diyala_S PRIV PRIV [id number] [facility] 2023-07-21 00:00:00 2023-07-21 00:00:00 Outpatient GC_GCBZW_Ka diyala_S PRIV PRIV [id number] [facility] 2023-07-15 00:00:00 2023-07-15 00:00:00 Outpatient GC_GCBZW_Ka diyala_S PRIV PRIV [id number] [facility] 2023-07-07 00:00:00 2023-07-07 00:00:00 Outpatient GC_GCBZW_Ka diyala_S PRIV PRIV [id number] [facility] 2023-07-06 00:00:00 2023-07-06 00:00:00 Outpatient GC_GCBZW_Ka diyala_S PRIV PRIV [id number] [facility] 2023-04-13 00:00:00 2023-04-13 00:00:00 Outpatient GC_GCBZW_Ka diyala_S PRIV PRIV [id number] [facility] 2023-04-12 00:00:00 2023-04-12 00:00:00 Outpatient GC_GCBZW_Ka diyala_S PRIV PRIV [id number] [facility] 2023-04-05 00:00:00 2023-04-05 00:00:00 Outpatient GC_GCBZW_Ka diyala_S PRIV PRIV [id number] [facility] 2023-04-05 00:00:00 2023-04-05 00:00:00 Outpatient GC_GCBZW_Ka diyala_S PRIV PRIV [id number] [facility] 2019-03-31 00:00:00 2019-03-31 00:00:[address] [facility] [id number] [id number] [id number] 2019-03-31 00:00:00 2019-03-31 00:00:00 Telephone [facility] [id number] [id number] [id number] [id number] [facility] 2019-03-29 10:55:16 2019-03-29 11:10:16 Office Visit [facility] [id number] [id number] [id number] [id number] 2019-03-29 10:55:16 2019-03-29 11:10:16 Office Visit [facility] [id number] [id number] [id number] [id number] [facility] 2019-03-29 00:00:00 2019-03-29 00:00:00 Orders Only Doctor Unassigned, [place] [facility] [id number] [id number] [id number] [id number] 2019-03-29 00:00:00 2019-03-29 00:00:00 Orders Only Doctor Unassigned, [place] [facility] [id number] [id number] [id number] [facility] Results Test Description Test Time Test Comments Results Result Co mments Source [facility], [id number] 13:27:40* Test Item Value Reference Range Interpretation Comme nts HCG (test code = HCG) negative [facility], [id number] 09:59:00* Test Item Value Reference Range Interpretation Comme nts HCG (test code = HCG) negative [facility]PV DNA, genotypes 16+18, [id number] 00:00:00* Test Item Value Reference Range Interpretation Comme nts HPV high risk DNA (non 16/18 ) (test code = HPV high risk DNA (non 16/18)) Detected not detected A HPV high risk DNA type 16 (t est code = HPV high risk DNA type 16) Not Detected not detected HPV high risk DNA type 18 (t est code = HPV high risk DNA type 18) Not Detected not detected [facility] [Units/volume] in Serum or [id number] 00:00:00* Test Item Value Reference Range Interpretation Comme nts TSH (test code = TSH) 4.680 uIU/mL 0.500-4.530 H [facility] MedicalChoriogonadotropin.beta subunit [Units/volume] in Serum or Plasma 2024-02-15 00:00[facility] by Automated count 2024-02-15 00:00:00* Test Item Value Reference Range Interpretation Comme nts WBC (test code = WBC) 6.9 10 3.7-12.0 RBC (test code = RBC) 4.81 10 3.60-5.50 HGB (test code = HGB) 14.2 g/dL 11.5-15.6 HCT (test code = HCT) 43.1 % 34.5-46.5 MCV (test code = MCV) 89.6 um 80.0-102.0 MCH (test code = MCH) 29.4 pg 25.0-34.1 MCHC (test code = MCHC) 32.8 g/dL 29.0-35.0 RDW (test code = RDW) 14.1 % 10.9-16.9 plt (test code = plt) 288 10 136-392 MPV (test code = MPV) 8.3 um 7.4-11.1 gran % (test code = gran %) 61.0 % 36.0-78.0 lymph % (test code = lymph %) 29.1 % 12.0-48.0 mono % (test code = mono %) 7.3 % 0.0-13.0 eos % (test code = eos %) 2 % 0-8 baso % (test code = baso %) 1 % 0-2 gran # (test code = gran #) 4.2 10 1.2-6.8 lymph # (test code = lymph #) 2.0 10 1.2-3.2 mono # (test code = mono #) 0.5 10 0.3-0.8 eos # (test code = eos #) 0.1 10 0.0-0.4 baso # (test code = baso #) 0.0 10 0.0-0.2 [facility] Medical[facility]lamydia trachomatis and Neisseria gonorrhoeae rRNA panel - Specimen by ANGELINE with probe [id number] 00:00:00* Test Item Value Reference Range Interpretation Comme nts aptima combo 2 swab (CT) (te st code = aptima combo 2 swab (CT)) CT NEG negative aptima combo 2 swab (GC) (te st code = aptima combo 2 swab (GC)) GC NEG negative [facility] MedicalThyroxine (T4) free [Mass/volume] in Serum or [id number] 00:00:00* Test Item Value Reference Range Interpretation Comme nts free T4 (test code = free T4) 0.73 NG/dL 0.80-1.73 L [facility] Medicalpap, LB + reflex to HR HPV if [id number] 00:00:00* Test Item Value Reference Range Interpretation Comme nts LMP date: (test code = LMP date:) 01/31/2024 Pap, liquid-based (test code = Pap, liquid-based) LSIL nilm A source (liquid-based cytology): (test code = source (liquid-based cytology):) CERVICAL (WHICH INCLUDES ENDOCERVICAL) [facility] Notes Date/Time Note Provider Source 2024-03-10 23:07:32 Pt requesting to leave AMA. ERP notified. Pt counseled to remain, risks of leaving AMA including discussed with pt. Pt continued to decline further ER evaluation at this time. AMA papers signed, witnessed, and placed on patient's chart. Pt left ambulatory. VS stable, no ataxia noted, GCS 15, A&Ox4. Petra Pack RN [facility] 2024-03-10 21:44:21 Pt states "I fainted at work about forty minutes ago. I started to feel strange and my head was hurting, then I fainted. This has happened before they said it could be POTS but I have never been tested." Pt states she was sitting when she fainted and just slid to floor. Denies hitting her head. Arleen Lockwood RN [facility]
[2025-01-02] MEDS ORDERED: KETOROLAC 30 MG/ML INJ ONE (08:09)
--- NOTE | 2025-01-02 08:28 | RAD REPORT ---
Procedure: Chest Single View HISTORY: Chest pain COMPARISON: 2021 FINDINGS: The lungs appear clear of acute infiltrate. No significant pleural effusion noted. The heart is normal size. IMPRESSION: No acute abnormality is displayed.
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
--- NOTE | 2025-01-02 08:35 | ER ---
Nurse's Notes [facility] Name: Hawa Montes Padilla Age: 24 yrs Sex: Female : 2000 Arrival Date: 01/02/2025 Time: 07:32 Bed 19 Private MD: Diagnosis: Musculoskeletal chest pain Presentation: 01/02 07:43 Chief complaint: Patient states: "I've been having right sided CP that radiates to my mb9 shoulder, SOB, and dizziness for a few days. It got worse while sitting at work today.". Coronavirus screen: Vaccine status: Patient reports being unvaccinated. Ebola Screen: No symptoms or risks identified at this time. Initial Sepsis Screen: Does the patient meet any 2 criteria? No. Patient's initial sepsis screen is negative. Does the patient have a suspected source of infection? No. Patient's initial sepsis screen is negative. Risk Assessment: Do you want to hurt yourself or someone else? Patient reports no desire to harm self or others. Onset of symptoms was January 02, 2025. 07:43 Acuity: LEAH 2 mb9 07:43 Method Of Arrival: Ambulatory 9 Triage Assessment: 07:44 General: Appears in no apparent distress. Behavior is calm, cooperative. Pain: mb9 Complains of pain in chest Pain radiates to right arm Pain currently is 10 out of 10 on a pain scale. Neuro: [place] Agitation-Sedation Scale (RASS): 0 - Alert and Calm Level of Consciousness is awake, alert, obeys commands, Oriented to person, place, time, situation, Appropriate for age. Cardiovascular: Reports chest pain, shortness of breath, Heart tones S1 S2 present. Respiratory: Reports shortness of breath at rest Airway is patent Respiratory effort is even, unlabored, Respiratory pattern is regular, symmetrical, Breath sounds are clear bilaterally. GI: Abdomen is round non-distended, Bowel sounds present X 4 quads. Abd is soft and non tender X 4 quads. : No signs and/or symptoms were reported regarding the genitourinary system. Derm: Skin is pink, warm \\T\\ dry. Musculoskeletal: Range of motion: intact in all extremities. 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 - Infectious Disease History:: Denies. - Social history:: Smoking status: Reported history of juuling and/or vaping. Screenin:49 [facility] ED Fall Risk Assessment (Adult) History of falling in the last 3 months, mb9 including since admission No falls in past 3 months (0 pts) Confusion or Disorientation No (0 pts) Intoxicated or Sedated No (0 pts) Impaired Gait No (0 pts) Mobility Assist Device Used No (0 pt) Altered Elimination No (0 pt) Score/Fall Risk Level 0 - 2 = Low Risk Oriented to surroundings, Maintained a safe environment, Educated pt \\T\\ family on fall prevention, incl call for assistance when getting out of bed. Abuse screen: Denies threats or abuse. Nutritional screening: No deficits noted. Tuberculosis screening: No symptoms or risk factors identified. Assessment: 07:48 Reassessment: see triage assessment. mb9 08:36 Reassessment: No changes from previously documented assessment. Patient and/or family mb9 updated on plan of care and expected duration. Pain level reassessed. Patient is alert, oriented x 3, equal unlabored respirations, skin warm/dry/pink. Vital Signs: 07:43 BP 154 / 101; Pulse 75; Resp 18; Temp 97.5; Pulse Ox 100% ; Weight 104.33 kg; Height 5 mb9 ft. 8 in. ; Pain 10/10; 08:36 BP 150 / 100; Pulse 74; Resp 18; Pulse Ox 100% on R/A; mb9 07:43 Body Mass Index 34.97 (104.33 kg, 172.72 cm) mb9 07:43 Pain Scale: Adult mb9 ED Course: 07:34 Patient arrived in ED. mb9 07:37 Alissa Velazquez MD is Attending Physician. sp3 07:42 La Fan, PRADEEP is Primary Nurse. mb9 07:42 Initial lab(s) drawn, by me, sent to lab. EKG done, by ED staff, reviewed by Alissa Velazquez MD. 07:44 Triage completed. mb9 07:44 Arm band placed on. mb9 07:49 Placed in gown. Bed in low position. Call light in reach. Side rails up X 1. Provided mb9 Education on: press call light if needing anything. Client placed on continuous cardiac and pulse oximetry monitoring. NIBP monitoring applied. skilled trades teacher on. Door closed. Noise minimized. Warm blanket given. Pillow given. 07:50 No provider procedures requiring assistance completed. mb9 08:00 Inserted saline lock: 20 gauge in left antecubital area, using aseptic technique. mb9 Flushed with 10 mL NS. 08:09 XRAY Chest (1 view) In Process Unspecified. EDMS 08:43 IV discontinued, intact, bleeding controlled, No redness/swelling at site. Pressure mb9 dressing applied. Administered Medications: 08:18 Drug: Ketorolac IVP 30 mg IVP once Route: IVP; Site: left antecubital; mb9 08:36 Follow up: Response: No adverse reaction mb9 Medication: 07:50 VIS not applicable for this client. mb9 Outcome: 08:35 Discharge ordered by . brian 08:43 Discharged to home ambulatory, mb9 08:43 Condition: stable 08:43 Discharge instructions given to patient, Instructed on discharge instructions, follow up and referral plans. Demonstrated understanding of instructions, follow-up care, medications, Prescriptions given X 1, 08:44 Patient left the ED. mb9 Signatures: Dispatcher [employer] EDMS Alissa Velazquez MD MD sp3 La Fan RN RN mb9 Corrections: (The following items were deleted from the chart) 07:44 07:44 Allergies: No Known Allergies; mb9 mb9 08:07 07:42 Inserted saline lock: 20 gauge in left antecubital area, using aseptic technique. mb9 Blood collected. Flushed with 10 mL NS mb9
[2025-01-02 08:55] VITALS: TEMP 97.5; O2SAT 100
[2025-01-02 09:09] VITALS: BP 150/100
== END 2025-01-02 08:44 | disposition home or self-care (01) ==
LOC: ER 07:32
DX: R07.89 Other chest pain (principal)
CPT/HCPCS: 71045; 93005; 96374; 99285